=== PATIENT | male | born 1925 | race Asian ===

== ENCOUNTER 2016-10-05 13:29 | Inpatient (IN) | payer OTHER ==
[~2016-10-05] VITALS: Ht 165.1 cm; Wt 59.4 kg
[~2016-10-05 13:29] MED LIST: AUD NEB; DSSL PO; FAMO20 PO; INSLAN SQ; INSNOV SQ; IPRNEB IH; LISI-660 PO; MOM30 PO; SINCR25100 PO; TRAM50TA4 PO; [UNRECOGNIZED DRUG - CODE] TP; [UNRECOGNIZED DRUG - OTHER] TP
[2016-10-05 14:21] LABS: BASOPHILS % (AUTO) 0.6 % (0.0-2.0); EOSINOPHILS % (AUTO) 2.1 % (1.0-6.0); HEMATOCRIT 30.7 % (41-53); HEMOGLOBIN 9.8 g/dL (13.5-17.5); LYMPHOCYTES # (AUTO) 1.7 K/uL (1.0-4.8); MEAN CORPUSCULAR HEMOGLOBIN 28.7 pg (26.0-34.0); MEAN CORPUSCULAR HGB CONC 31.7 G/dL (31.0-37.0); MEAN CORPUSCULAR VOLUME 91 fL (80-100); NEUTROPHILS % (AUTO) 81.3 % (40.0-70.0); PLATELET COUNT (AUTO) 263 K/uL (150-450); RED BLOOD CELL COUNT(AUTO) 3.39 MIL/uL (4.50-5.90); RED CELL DISTRIBUTION WIDTH 16.3 % (11.5-14.5); WHITE BLOOD COUNT (AUTO) 17.2 K/uL (4.5-11.0)
[2016-10-05 14:29] LABS: CALCIUM, TOTAL 9.6 mg/dL (8.8-10.5); CREATININE 1.59 mg/dL (0.60-1.30); POTASSIUM 4.7 mmol/L (3.5-5.1)
[2016-10-05 14:34] LABS: ALBUMIN 2.4 g/dL (3.4-5.0); BILIRUBIN,TOTAL 0.4 mg/dL (0.1-1.0); TOTAL PROTEIN, SERUM 8.5 g/dL (6.4-8.2)
[2016-10-05 14:37] LABS: LACTIC ACID 1.9 mmol/L (0.4-2.0)
[2016-10-05] MEDS ORDERED: SODIUM CHLORIDE 0.9% 1,000 ML IV ONE (14:45)
[2016-10-05] MEDS ORDERED: ALBUTEROL SULFATE 2.5 MG/0.5 ML NEB SOLUTION NEB ONE (16:00)
[2016-10-05] MEDS ORDERED: PIPERACILLIN SODIUM/TAZOBACTAM 2.25 GM in DEXTROSE 5%-WATER 50 ML IV ONE (16:00)
[2016-10-05] MEDS ORDERED: VANCOMYCIN HCL 1.5 GM in DEXTROSE 5%-WATER 250 ML IV ONE (16:00)
[2016-10-05] MEDS ORDERED: 0.9% SODIUM CHLORIDE 5 ML NEB SOLUTION NEB ONE (16:03)
[2016-10-05] MEDS ORDERED: ACETAMINOPHEN 325 MG TABLET PO PRN ×2 (16:15→20:45)
[2016-10-05] MEDS ORDERED: 0.9% SODIUM CHLORIDE 10 ML SYRINGE IVP PRN ×2 (16:15→20:45)
[2016-10-05] MEDS ORDERED: ONDANSETRON HCL 4 MG/2 ML VIAL IVP PRN ×2 (16:15→20:45)
[2016-10-05 17:10] LABS: ABG A-A DIFF O2 33.9 mmHg (10-20.0); ABG BASE EXCESS 4.5 mmol/L (-2.0-3.0); ABG HCO3 28.1 mmol/L (22.0-26.0); ABG OXYHEMOGLOBIN 96.8 % (94.0-100.0); ABG PCO2 44 mmHg (35-45); ABG PH 7.435 (7.35-7.450)
[2016-10-05 17:12] LABS: ALLEN TEST, BLOOD GAS Positive
[2016-10-05 17:17] LABS: APPEARANCE,URINE CLOUDY (CLEAR); GLUCOSE, URINE (UA) NEGATIVE (NEGATIVE); KETONES,URINE NEGATIVE (NEGATIVE); LEUKOCYTE ESTERASE ,URINE NEGATIVE (NEGATIVE); OCCULT BLOOD,URINE NEGATIVE (NEGATIVE); PH,URINE 5.5 (5.0-8.0); PROTEIN,URINE NEGATIVE (NEGATIVE)
[2016-10-05 17:28] LABS: SQUAMOUS EPITHELIAL CELL,UR Few /LPF (None Seen)
[2016-10-05 17:29] LABS: RBC,URINE 0-2 /HPF (0-2)
[2016-10-05 18:26] VITALS: BP 140/52
[2016-10-05 20:03] VITALS: BP 116/71
[2016-10-05] MEDS ORDERED: IPRATROPIUM BROMIDE 0.5 MG/2.5 ML NEB SOLUTION NEB SCH (20:30)
[2016-10-05] MEDS ORDERED: ALBUTEROL SULFATE 2.5 MG/0.5 ML NEB SOLUTION NEB SCH (20:30)
[2016-10-05] MEDS: INSULIN DETEMIR 100 UNITS/ML SQ SCH (20:30)
[2016-10-05] MEDS: LISINOPRIL 5 MG TABLET PO SCH (20:30)
[2016-10-05] MEDS ORDERED: MAGNESIUM HYDROXIDE SUSPENSION 30 ML UDCUP PO PRN (20:45)
[2016-10-05] MEDS ORDERED: OxyCODONE HCL/ACETAMINOPHEN 5-325 MG TABLET PO PRN (20:45)
[2016-10-05] MEDS ORDERED: SODIUM CHLORIDE 0.45% 1,000 ML IV ONE (21:00)
[2016-10-05] MEDS ORDERED: DEXTROSE 50%-WATER 25 GM/50 ML SYRINGE IVP PRN (21:00)
[2016-10-05] MEDS: DOCUSATE SODIUM 100 MG CAPSULE PO SCH (21:00)
[2016-10-05 23:12] VITALS: BP 114/60
[2016-10-05] MEDS: FAMOTIDINE 20 MG TABLET PO SCH (23:46)
[2016-10-05] MEDS: PANTOPRAZOLE SODIUM 40 MG/VIAL IVP SCH (23:46)
[2016-10-05] MEDS: MAGNESIUM HYDROXIDE SUSPENSION 30 ML UDCUP PO SCH (23:46)
[2016-10-05] MEDS: CARBIDOPA/LEVODOPA 25-100 MG ER TABLET PO SCH (23:46)
[2016-10-05] MEDS: TraMADol HCL 50 MG TABLET PO SCH (23:47)
[2016-10-06] MEDS: HYDROGEN PEROXIDE 473 ML SOLUTION TP SCH ×2 (00:42→08:30)
[2016-10-06] MEDS: INSULIN ASPART 100 UNITS/ML SQ PRN ×3 (00:43→17:58)
[2016-10-06] MEDS: PIPERACILLIN/TAZO 3.375 GM/D5W 50 ML IV SCH ×4 (03:15→17:53)
[2016-10-06 06:51] LABS: HEMATOCRIT 32.8 % (41-53); HEMOGLOBIN 10.2 g/dL (13.5-17.5); MEAN CORPUSCULAR HEMOGLOBIN 28.5 pg (26.0-34.0); MEAN CORPUSCULAR VOLUME 92 fL (80-100); PLATELET COUNT (AUTO) 251 K/uL (150-450); RED BLOOD CELL COUNT(AUTO) 3.58 MIL/uL (4.50-5.90); RED CELL DISTRIBUTION WIDTH 15.5 % (11.5-14.5)
[2016-10-06 07:15] LABS: CALCIUM, TOTAL 9.6 mg/dL (8.8-10.5); CREATININE 1.41 mg/dL (0.60-1.30); POTASSIUM 4.5 mmol/L (3.5-5.1)
[2016-10-06 07:38] VITALS: BP 107/53
[2016-10-06 07:40] LABS: WHITE BLOOD COUNT (AUTO) 23.7 K/uL (4.5-11.0)
[2016-10-06 07:43] LABS: BASOPHILS % (MANUAL) 1 % (0-2); EOSINOPHILS % (MANUAL) 1 % (1-6); LYMPHOCYTES % (MANUAL) 16 % (22-44); TOTAL CELLS COUNTED 100
[2016-10-06] MEDS: CARBIDOPA/LEVODOPA 25-100 MG ER TABLET PO SCH ×2 (08:32→19:51)
[2016-10-06] MEDS: DOCUSATE SODIUM 100 MG CAPSULE PO SCH ×2 (08:32→19:51)
[2016-10-06] MEDS: MAGNESIUM HYDROXIDE SUSPENSION 30 ML UDCUP PO SCH (08:32)
[2016-10-06] MEDS: POVIDONE-IODINE 30 GM OINTMENT TP SCH ×2 (08:32)
[2016-10-06] MEDS: PANTOPRAZOLE SODIUM 40 MG/VIAL IVP SCH (08:33)
[2016-10-06] MEDS: LISINOPRIL 5 MG TABLET PO SCH (08:34)
[2016-10-06] MEDS: INSULIN DETEMIR 100 UNITS/ML SQ SCH (08:40)
[2016-10-06] MEDS: VANCOMYCIN HCL 1 GM/D5% WATER 200 ML IV SCH (08:42)
[2016-10-06 11:44] VITALS: BP 116/55
[2016-10-06] MEDS ORDERED: SODIUM CHLORIDE 0.9% 100 ML ONE (14:03)
[2016-10-06 15:42] VITALS: BP 107/64
[2016-10-06 19:50] VITALS: BP 119/72
[2016-10-06] MEDS: FAMOTIDINE 20 MG TABLET PO SCH (19:51)
[2016-10-06] MEDS: TraMADol HCL 50 MG TABLET PO SCH (19:51)
[2016-10-07] VITALS (7 sets, daily range): BP systolic 111–137; BP diastolic 50–77
[2016-10-07] MEDS: PIPERACILLIN/TAZO 3.375 GM/D5W 50 ML IV SCH ×4 (01:02→17:32)
[2016-10-07] MEDS: INSULIN ASPART 100 UNITS/ML SQ PRN ×4 (02:56→18:01)
[2016-10-07] MEDS: ALBUTEROL SULFATE 2.5 MG/0.5 ML NEB SOLUTION NEB SCH ×4 (03:12→19:27)
[2016-10-07] MEDS: IPRATROPIUM BROMIDE 0.5 MG/2.5 ML NEB SOLUTION NEB SCH ×4 (03:13→19:27)
[2016-10-07 06:25] LABS: CALCIUM, TOTAL 8.8 mg/dL (8.8-10.5); CREATININE 1.28 mg/dL (0.60-1.30); POTASSIUM 4.3 mmol/L (3.5-5.1)
[2016-10-07] MEDS: CARBIDOPA/LEVODOPA 25-100 MG ER TABLET PO SCH ×2 (08:41→19:47)
[2016-10-07] MEDS: MAGNESIUM HYDROXIDE SUSPENSION 30 ML UDCUP PO SCH (08:41)
[2016-10-07] MEDS: DOCUSATE SODIUM 100 MG CAPSULE PO SCH ×2 (08:42→19:46)
[2016-10-07] MEDS: HYDROGEN PEROXIDE 473 ML SOLUTION TP SCH (08:42)
[2016-10-07] MEDS: LISINOPRIL 5 MG TABLET PO SCH (08:42)
[2016-10-07] MEDS: PANTOPRAZOLE SODIUM 40 MG/VIAL IVP SCH (08:42)
[2016-10-07] MEDS: INSULIN DETEMIR 100 UNITS/ML SQ SCH (08:52)
[2016-10-07] MEDS: POVIDONE-IODINE 30 GM OINTMENT TP SCH (09:00)
[2016-10-07] MEDS: VANCOMYCIN HCL 1 GM/D5% WATER 200 ML IV SCH (09:35)
[2016-10-07] MEDS: DEXTROSE 5%-WATER 1,000 ML IV SCH (16:36)
[2016-10-07] MEDS: FAMOTIDINE 20 MG TABLET PO SCH (19:46)
[2016-10-07] MEDS: TraMADol HCL 50 MG TABLET PO SCH (19:47)
[2016-10-08] MEDS: PIPERACILLIN/TAZO 3.375 GM/D5W 50 ML IV SCH ×4 (00:21→18:20)
[2016-10-08] MEDS: ALBUTEROL SULFATE 2.5 MG/0.5 ML NEB SOLUTION NEB SCH ×4 (01:34→20:27)
[2016-10-08] MEDS: IPRATROPIUM BROMIDE 0.5 MG/2.5 ML NEB SOLUTION NEB SCH ×4 (01:34→20:27)
[2016-10-08] MEDS: DEXTROSE 5%-WATER 1,000 ML IV SCH ×2 (03:58→17:00)
[2016-10-08 05:15] VITALS: BP 120/64
[2016-10-08 07:07] VITALS: BP 118/70
[2016-10-08 07:23] LABS: ANION GAP 7 mmol/L (8-16); CALCIUM, TOTAL 8.6 mg/dL (8.8-10.5); CARBON DIOXIDE 29 mmol/L (22-29); CHLORIDE 111 mmol/L (98-107); CREATININE 1.13 mg/dL (0.60-1.30); GLOMERULAR FILTR. RATE CALC > 60 mL/min (>60); POTASSIUM 5.1 mmol/L (3.5-5.1); SODIUM SERUM 147 mmol/L (136-145); UREA NITROGEN, BLOOD 33 mg/dL (7-18)
[2016-10-08] MEDS: PANTOPRAZOLE SODIUM 40 MG/VIAL IVP SCH (08:25)
[2016-10-08] MEDS: DOCUSATE SODIUM 100 MG CAPSULE PO SCH ×2 (08:25→20:26)
[2016-10-08] MEDS: MAGNESIUM HYDROXIDE SUSPENSION 30 ML UDCUP PO SCH (08:26)
[2016-10-08] MEDS: HYDROGEN PEROXIDE 473 ML SOLUTION TP SCH (08:26)
[2016-10-08] MEDS: CARBIDOPA/LEVODOPA 25-100 MG ER TABLET PO SCH ×2 (08:26→20:26)
[2016-10-08] MEDS: LISINOPRIL 5 MG TABLET PO SCH (08:26)
[2016-10-08] MEDS: POVIDONE-IODINE 30 GM OINTMENT TP SCH (08:26)
[2016-10-08] MEDS: VANCOMYCIN HCL 1 GM/D5% WATER 200 ML IV SCH (08:43)
[2016-10-08] MEDS: INSULIN DETEMIR 100 UNITS/ML SQ SCH (08:44)
[2016-10-08 11:10] VITALS: BP 130/60
[2016-10-08] MEDS: OxyCODONE HCL/ACETAMINOPHEN 5-325 MG TABLET PO PRN (12:53)
[2016-10-08 15:28] VITALS: BP 96/46
[2016-10-08] MEDS: DEXTROSE 50%-WATER 25 GM/50 ML SYRINGE IVP PRN (18:20)
[2016-10-08 19:21] VITALS: BP 101/60
[2016-10-08] MEDS: TraMADol HCL 50 MG TABLET PO SCH (20:26)
[2016-10-08] MEDS: FAMOTIDINE 20 MG TABLET PO SCH (20:26)
[2016-10-09 00:02] VITALS: BP 107/60
[2016-10-09] MEDS: PIPERACILLIN/TAZO 3.375 GM/D5W 50 ML IV SCH ×5 (00:07→23:29)
[2016-10-09] MEDS: OxyCODONE HCL/ACETAMINOPHEN 5-325 MG TABLET PO PRN (01:41)
[2016-10-09] MEDS: ALBUTEROL SULFATE 2.5 MG/0.5 ML NEB SOLUTION NEB SCH ×4 (02:03→20:18)
[2016-10-09] MEDS: IPRATROPIUM BROMIDE 0.5 MG/2.5 ML NEB SOLUTION NEB SCH ×4 (02:03→20:18)
[2016-10-09 04:51] VITALS: BP 108/59
[2016-10-09] MEDS: DEXTROSE 5%-WATER 1,000 ML IV SCH (05:43)
[2016-10-09] MEDS: DEXTROSE 50%-WATER 25 GM/50 ML SYRINGE IVP PRN (05:50)
[2016-10-09 07:19] VITALS: BP 106/57
[2016-10-09 08:12] LABS: ANION GAP 9 mmol/L (8-16); CARBON DIOXIDE 27 mmol/L (22-29); CHLORIDE 103 mmol/L (98-107); CREATININE 1.12 mg/dL (0.60-1.30); GLOMERULAR FILTR. RATE CALC > 60 mL/min (>60); SODIUM SERUM 139 mmol/L (136-145); UREA NITROGEN, BLOOD 25 mg/dL (7-18)
[2016-10-09 08:19] LABS: ALANINE AMINOTRANSFERASE 13 U/L (12-78); ALBUMIN 1.9 g/dL (3.4-5.0); ASPARTATE AMINOTRANSFERASE 43 U/L (15-37); BILIRUBIN,TOTAL 0.6 mg/dL (0.1-1.0); TOTAL PROTEIN, SERUM 7.4 g/dL (6.4-8.2)
[2016-10-09 08:24] LABS: BASOPHILS % (AUTO) 0.2 % (0.0-2.0); EOSINOPHILS % (AUTO) 10.7 % (1.0-6.0); HEMATOCRIT 26.6 % (41-53); HEMOGLOBIN 8.5 g/dL (13.5-17.5); LYMPHOCYTES # (AUTO) 1.1 K/uL (1.0-4.8); LYMPHOCYTES % (AUTO) 12.5 % (22.0-44.0); MEAN CORPUSCULAR HGB CONC 31.9 G/dL (31.0-37.0); MEAN CORPUSCULAR VOLUME 91 fL (80-100); MONOCYTES # (AUTO) 0.5 K/uL (0.1-1.0); MONOCYTES % (AUTO) 6.3 % (2.0-9.0); NEUTROPHILS # (AUTO) 5.9 K/uL (1.8-7.7); NEUTROPHILS % (AUTO) 70.3 % (40.0-70.0); PLATELET COUNT (AUTO) 253 K/uL (150-450); RED BLOOD CELL COUNT(AUTO) 2.92 MIL/uL (4.50-5.90); RED CELL DISTRIBUTION WIDTH 15.8 % (11.5-14.5); WHITE BLOOD COUNT (AUTO) 8.4 K/uL (4.5-11.0)
[2016-10-09] MEDS: DOCUSATE SODIUM 100 MG CAPSULE PO SCH ×2 (09:00→20:02)
[2016-10-09] MEDS: LISINOPRIL 5 MG TABLET PO SCH (09:00)
[2016-10-09] MEDS: CARBIDOPA/LEVODOPA 25-100 MG ER TABLET PO SCH ×2 (09:00→19:57)
[2016-10-09] MEDS: MAGNESIUM HYDROXIDE SUSPENSION 30 ML UDCUP PO SCH (09:00)
[2016-10-09] MEDS: PANTOPRAZOLE SODIUM 40 MG/VIAL IVP SCH (09:54)
[2016-10-09] MEDS: VANCOMYCIN HCL 1 GM/D5% WATER 200 ML IV SCH (09:54)
[2016-10-09] MEDS: HYDROGEN PEROXIDE 473 ML SOLUTION TP SCH (10:00)
[2016-10-09] MEDS: POVIDONE-IODINE 30 GM OINTMENT TP SCH (10:00)
[2016-10-09 11:27] VITALS: BP 118/75
[2016-10-09] MEDS ORDERED: DEXTROSE 10%-WATER 1,000 ML IV ONE (12:45)
[2016-10-09 17:50] LABS: GLUCOSE COMMENT 1 Received Meds; GLUCOSE,POINT OF CARE 375 MG/DL (70-110)
[2016-10-09 17:51] LABS: GLUCOSE COMMENT 1 Received Meds; GLUCOSE,POINT OF CARE 207 MG/DL (70-110)
[2016-10-09 17:56] LABS: GLUCOSE COMMENT 1 Received Meds; GLUCOSE,POINT OF CARE 358 MG/DL (70-110)
[2016-10-09 17:56] LABS: GLUCOSE,POINT OF CARE 113 MG/DL (70-110)
[2016-10-09 17:56] LABS: GLUCOSE,POINT OF CARE 128 MG/DL (70-110)
[2016-10-09 17:56] LABS: GLUCOSE COMMENT 1 Received Meds; GLUCOSE,POINT OF CARE 384 MG/DL (70-110)
[2016-10-09 17:56] LABS: GLUCOSE COMMENT 1 Received Meds; GLUCOSE,POINT OF CARE 307 MG/DL (70-110)
[2016-10-09 17:56] LABS: GLUCOSE COMMENT 1 Received Meds; GLUCOSE,POINT OF CARE 294 MG/DL (70-110)
[2016-10-09 17:56] LABS: GLUCOSE,POINT OF CARE 137 MG/DL (70-110)
[2016-10-09 18:12] LABS: GLUCOSE,POINT OF CARE 162 MG/DL (70-110)
[2016-10-09 18:12] LABS: GLUCOSE COMMENT 1 Received Meds; GLUCOSE,POINT OF CARE 181 MG/DL (70-110)
[2016-10-09 18:12] LABS: GLUCOSE COMMENT 1 Received Meds; GLUCOSE,POINT OF CARE 241 MG/DL (70-110)
[2016-10-09 18:16] LABS: GLUCOSE,POINT OF CARE 111 MG/DL (70-110)
[2016-10-09 18:17] LABS: GLUCOSE,POINT OF CARE 218 MG/DL (70-110)
[2016-10-09 18:17] LABS: GLUCOSE,POINT OF CARE 99 MG/DL (70-110)
[2016-10-09 18:17] LABS: GLUCOSE COMMENT 1 Juice/Food/D50 Given; GLUCOSE,POINT OF CARE 60 MG/DL (70-110)
[2016-10-09 18:17] LABS: GLUCOSE COMMENT 1 Received Meds; GLUCOSE,POINT OF CARE 60 MG/DL (70-110)
[2016-10-09] MEDS: INSULIN ASPART 100 UNITS/ML SQ PRN (18:57)
[2016-10-09 19:45] VITALS: BP 117/63
[2016-10-09] MEDS: FAMOTIDINE 20 MG TABLET PO SCH (19:57)
[2016-10-09] MEDS: TraMADol HCL 50 MG TABLET PO SCH (19:57)
[2016-10-09 23:57] VITALS: BP 96/57
[2016-10-10] MEDS: IPRATROPIUM BROMIDE 0.5 MG/2.5 ML NEB SOLUTION NEB SCH ×4 (02:58→19:32)
[2016-10-10] MEDS: ALBUTEROL SULFATE 2.5 MG/0.5 ML NEB SOLUTION NEB SCH ×4 (02:59→19:32)
[2016-10-10 04:19] VITALS: BP 107/56
[2016-10-10] MEDS: PIPERACILLIN/TAZO 3.375 GM/D5W 50 ML IV SCH ×2 (05:26→12:00)
[2016-10-10] MEDS: INSULIN ASPART 100 UNITS/ML SQ PRN (05:32)
[2016-10-10 07:29] VITALS: BP 103/56
[2016-10-10 07:29] LABS: BASOPHILS % (AUTO) 0.2 % (0.0-2.0); EOSINOPHILS % (AUTO) 9.1 % (1.0-6.0); HEMATOCRIT 24.9 % (41-53); HEMOGLOBIN 8.1 g/dL (13.5-17.5); LYMPHOCYTES # (AUTO) 1.1 K/uL (1.0-4.8); LYMPHOCYTES % (AUTO) 12.4 % (22.0-44.0); MEAN CORPUSCULAR HGB CONC 32.5 G/dL (31.0-37.0); MEAN CORPUSCULAR VOLUME 89 fL (80-100); MONOCYTES # (AUTO) 0.5 K/uL (0.1-1.0); MONOCYTES % (AUTO) 5.5 % (2.0-9.0); NEUTROPHILS # (AUTO) 6.8 K/uL (1.8-7.7); NEUTROPHILS % (AUTO) 72.8 % (40.0-70.0); PLATELET COUNT (AUTO) 258 K/uL (150-450); RED CELL DISTRIBUTION WIDTH 15.8 % (11.5-14.5); WHITE BLOOD COUNT (AUTO) 9.3 K/uL (4.5-11.0)
[2016-10-10 07:54] LABS: ALBUMIN 1.9 g/dL (3.4-5.0); BILIRUBIN,TOTAL 0.6 mg/dL (0.1-1.0); CALCIUM, TOTAL 7.9 mg/dL (8.8-10.5); CREATININE 1.35 mg/dL (0.60-1.30); POTASSIUM 3.9 mmol/L (3.5-5.1); TOTAL PROTEIN, SERUM 7.3 g/dL (6.4-8.2)
[2016-10-10] MEDS: VANCOMYCIN HCL 1 GM/D5% WATER 200 ML IV SCH (08:28)
[2016-10-10] MEDS: CARBIDOPA/LEVODOPA 25-100 MG ER TABLET PO SCH ×2 (09:00→21:20)
[2016-10-10] MEDS: DOCUSATE SODIUM 100 MG CAPSULE PO SCH ×2 (09:00→21:20)
[2016-10-10] MEDS: LISINOPRIL 5 MG TABLET PO SCH (09:00)
[2016-10-10] MEDS: MAGNESIUM HYDROXIDE SUSPENSION 30 ML UDCUP PO SCH (09:00)
[2016-10-10] MEDS: POVIDONE-IODINE 30 GM OINTMENT TP SCH (09:16)
[2016-10-10] MEDS: HYDROGEN PEROXIDE 473 ML SOLUTION TP SCH (09:17)
[2016-10-10] MEDS: PANTOPRAZOLE SODIUM 40 MG/VIAL IVP SCH (09:26)
[2016-10-10 10:36] VITALS: BP 108/60
[2016-10-10] MEDS ORDERED: SODIUM CHLORIDE 0.9% 1,000 ML IV ONE ×2 (10:59→11:00)
[2016-10-10] MEDS ORDERED: PROPOFOL 1% 20 ML VIAL IVP ONE (12:00)
[2016-10-10] MEDS ORDERED: EPHEDrine SULFATE 50 MG/ML VIAL IM ONE (12:00)
[2016-10-10] MEDS ORDERED: 0.9% SODIUM CHLORIDE 10 ML VIAL IVP ONE (12:00)
[2016-10-10] MEDS ORDERED: PHENYLEPHRINE HCL 10 MG/ML VIAL IVP ONE (12:00)
[2016-10-10] MEDS ORDERED: INSULIN ASPART 100 UNITS/ML SQ PRN (12:15)
[2016-10-10 14:33] VITALS: BP 134/70
[2016-10-10] MEDS ORDERED: SODIUM CHLORIDE 0.9% 100 ML ONE (16:41)
[2016-10-10] MEDS: PIPERACILLIN SODIUM/TAZOBACTAM 2.25 GM in DEXTROSE 5%-WATER 50 ML IV SCH (16:53)
[2016-10-10] MEDS ORDERED: DEXTROSE 50%-WATER 25 GM/50 ML SYRINGE IVP PRN (17:15)
[2016-10-10 18:36] LABS: GLUCOSE COMMENT 1 Received Meds; GLUCOSE,POINT OF CARE 300 MG/DL (70-110)
[2016-10-10 18:36] LABS: GLUCOSE COMMENT 1 Received Meds; GLUCOSE,POINT OF CARE 210 MG/DL (70-110)
[2016-10-10] MEDS: INSULIN REGULAR, HUMAN 100 UNITS/ML SQ PRN (18:44)
[2016-10-10 19:45] LABS: GLUCOSE COMMENT 1 Received Meds; GLUCOSE,POINT OF CARE 253 MG/DL (70-110)
[2016-10-10 20:16] VITALS: BP 142/69
[2016-10-10] MEDS: TraMADol HCL 50 MG TABLET PO SCH (21:20)
[2016-10-10] MEDS: FAMOTIDINE 20 MG TABLET PO SCH (21:20)
[2016-10-11 00:04] VITALS: BP 130/67
[2016-10-11] MEDS: PIPERACILLIN SODIUM/TAZOBACTAM 2.25 GM in DEXTROSE 5%-WATER 50 ML IV SCH ×4 (00:44→17:50)
[2016-10-11] MEDS: INSULIN REGULAR, HUMAN 100 UNITS/ML SQ PRN ×5 (01:07→18:50)
[2016-10-11] MEDS: IPRATROPIUM BROMIDE 0.5 MG/2.5 ML NEB SOLUTION NEB SCH ×4 (02:51→19:35)
[2016-10-11] MEDS: ALBUTEROL SULFATE 2.5 MG/0.5 ML NEB SOLUTION NEB SCH ×4 (02:51→19:35)
[2016-10-11 04:33] VITALS: BP 122/64
[2016-10-11 07:15] LABS: BASOPHILS % (AUTO) 0.2 % (0.0-2.0); EOSINOPHILS % (AUTO) 9.9 % (1.0-6.0); HEMATOCRIT 25.4 % (41-53); LYMPHOCYTES # (AUTO) 1.3 K/uL (1.0-4.8); LYMPHOCYTES % (AUTO) 14.6 % (22.0-44.0); MEAN CORPUSCULAR HEMOGLOBIN 28.3 pg (26.0-34.0); MEAN CORPUSCULAR HGB CONC 31.6 G/dL (31.0-37.0); MEAN CORPUSCULAR VOLUME 90 fL (80-100); MONOCYTES # (AUTO) 0.6 K/uL (0.1-1.0); MONOCYTES % (AUTO) 6.7 % (2.0-9.0); NEUTROPHILS # (AUTO) 6.1 K/uL (1.8-7.7); NEUTROPHILS % (AUTO) 68.6 % (40.0-70.0); PLATELET COUNT (AUTO) 311 K/uL (150-450); RED BLOOD CELL COUNT(AUTO) 2.84 MIL/uL (4.50-5.90); RED CELL DISTRIBUTION WIDTH 15.7 % (11.5-14.5); WHITE BLOOD COUNT (AUTO) 8.8 K/uL (4.5-11.0)
[2016-10-11 07:31] LABS: ALANINE AMINOTRANSFERASE 15 U/L (12-78); ALBUMIN 1.9 g/dL (3.4-5.0); ANION GAP 6 mmol/L (8-16); ASPARTATE AMINOTRANSFERASE 34 U/L (15-37); BILIRUBIN,TOTAL 0.4 mg/dL (0.1-1.0); CALCIUM, TOTAL 7.7 mg/dL (8.8-10.5); CARBON DIOXIDE 28 mmol/L (22-29); CHLORIDE 103 mmol/L (98-107); CREATININE 0.99 mg/dL (0.60-1.30); GLOMERULAR FILTR. RATE CALC > 60 mL/min (>60); SODIUM SERUM 137 mmol/L (136-145); TOTAL PROTEIN, SERUM 7.3 g/dL (6.4-8.2); UREA NITROGEN, BLOOD 13 mg/dL (7-18)
[2016-10-11] MEDS: DOCUSATE SODIUM 100 MG CAPSULE PO SCH (07:46)
[2016-10-11 08:12] VITALS: BP 118/62
[2016-10-11] MEDS: VANCOMYCIN HCL 1 GM/D5% WATER 200 ML IV SCH (08:25)
[2016-10-11] MEDS: MAGNESIUM HYDROXIDE SUSPENSION 30 ML UDCUP PO SCH (08:25)
[2016-10-11] MEDS: POVIDONE-IODINE 30 GM OINTMENT TP SCH (08:26)
[2016-10-11] MEDS: HYDROGEN PEROXIDE 473 ML SOLUTION TP SCH (08:26)
[2016-10-11] MEDS: PANTOPRAZOLE SODIUM 40 MG/VIAL IVP SCH (08:31)
[2016-10-11] MEDS: CARBIDOPA/LEVODOPA 25-100 MG ER TABLET PO SCH (08:31)
[2016-10-11] MEDS: LISINOPRIL 5 MG TABLET PO SCH (08:31)
[2016-10-11] MEDS ORDERED: POVIDONE-IODINE 10% 120 ML SOLUTION TP SCH ×2 (09:00)
[2016-10-11] MEDS ORDERED: HYDROGEN PEROXIDE 473 ML SOLUTION TP SCH ×2 (09:00)
[2016-10-11 11:34] VITALS: BP 152/83
[2016-10-11 12:01] LABS: GLUCOSE COMMENT 1 Received Meds; GLUCOSE,POINT OF CARE 251 MG/DL (70-110)
[2016-10-11 12:01] LABS: GLUCOSE COMMENT 1 Received Meds; GLUCOSE,POINT OF CARE 174 MG/DL (70-110)
[2016-10-11 12:06] LABS: GLUCOSE COMMENT 1 Received Meds; GLUCOSE,POINT OF CARE 262 MG/DL (70-110)
[2016-10-11 15:34] VITALS: BP 136/78
[2016-10-11 17:26] LABS: GLUCOSE COMMENT 1 Received Meds; GLUCOSE,POINT OF CARE 228 MG/DL (70-110)
[2016-10-11 20:00] VITALS: BP 132/65
[2016-10-15 19:26] LABS: GLUCOSE COMMENT 1 Received Meds; GLUCOSE,POINT OF CARE 242 MG/DL (70-110)
== END 2016-10-11 20:20 | DRG 326 ==
LOC: EMS 13:32 → AHU 16:33 → 5N 18:05
PROVIDERS: ADMIT Internal Medicine; ATTEND Internal Medicine
PROC: 0DHA3UZ Insertion of Feeding Device into Jejunum, Percutaneous Approach (ICD-10-PCS; 2016-10-10)
PROC: 0DP68UZ Removal of Feeding Device from Stomach, Via Natural or Artificial Opening Endoscopic (ICD-10-PCS; principal; 2016-10-10 12:00)
DX: K94.23 Gastrostomy malfunction (principal); A41.9 Sepsis, unspecified organism; G93.41 Metabolic encephalopathy; J18.9 Pneumonia, unspecified organism; N17.0 Acute kidney failure with tubular necrosis; E43 Unspecified severe protein-calorie malnutrition; E87.0 Hyperosmolality and hypernatremia; I69.354 Hemiplegia and hemiparesis following cerebral infarction affecting left non-dominant side; G91.9 Hydrocephalus, unspecified; L03.311 Cellulitis of abdominal wall; K94.22 Gastrostomy infection; E86.0 Dehydration; I73.9 Peripheral vascular disease, unspecified; F03.90 Unspecified dementia, unspecified severity, without behavioral disturbance, psychotic disturbance, mood disturbance, and anxiety; E11.649 Type 2 diabetes mellitus with hypoglycemia without coma; G20 Parkinson's disease; R13.10 Dysphagia, unspecified; N40.0 Benign prostatic hyperplasia without lower urinary tract symptoms; E78.5 Hyperlipidemia, unspecified; I10 Essential (primary) hypertension; I69.320 Aphasia following cerebral infarction; K21.9 Gastro-esophageal reflux disease without esophagitis; E78.00 Pure hypercholesterolemia, unspecified; K29.00 Acute gastritis without bleeding; Z79.4 Long term (current) use of insulin; Z79.899 Other long term (current) drug therapy; Y84.8 Other medical procedures as the cause of abnormal reaction of the patient, or of later complication, without mention of misadventure at the time of the procedure; Y92.89 Other specified places as the place of occurrence of the external cause
CPT/HCPCS: 51701; 70450; 82271; 82805; 82948; 82962; 83605; 84146; 87040; 87081; 93005; 94640; 96374; 99285; C9113; J2370; J2543; J2704; J3370; J3490; J7030; J7050; J7060